=== PATIENT | female | born 1990 | race Caucasian/White ===

== ENCOUNTER 2023-11-04 13:13 | Emergency (ER) | payer OTHER ==
[~2023-11-04] VITALS: Ht 152.4 cm; Wt 80.1 kg
[~2023-11-04 13:13] MED LIST: BENTYL 20MG20 MG/TAB PO; CARAFATE 1GM1 G PO; ZOFRAN ODT4 MG PO
[2023-11-04 13:14] VITALS: TEMP 98.2
[2023-11-04 13:38] LABS: MEAN CELL VOLUME 91 fl (80.0-100.0); MEAN CORPUSCULAR HGB CONC 33 g/dl (33.0-37.0); MEAN PLATELET VOLUME 10.3 fl (7.4-10.4); PLATELET COUNT 297 K/mm3 (130-400); RED BLOOD COUNT 3.27 M/mm3 (4.10-5.30); REDCELL DISTRIBUTION WIDTH-CV 14.4 % (11.5-14.5)
[2023-11-04 13:40] LABS: HEMATOCRIT 29.8 % (37.0-47.0); HEMOGLOBIN 9.9 g/dl (12.5-16.0); MEAN CORPUSCULAR HEMOGLOBIN 30 pg (27-31)
[2023-11-04 13:59] LABS: ANISOCYTOSIS 1+; BAND 3 % (0-10); EOSINOPHIL 4 % (0-4); LYMPHOCYTE 21 % (20.0-51.0); NEUTROPHILS 64 % (42.0-75.2); POLYCHROMASIA 1+
[2023-11-04 14:00] LABS: PLATELET ESTIMATE NORMAL (NORMAL)
[2023-11-04 14:01] LABS: COLLECTION METHOD CLEAN CATCH
[2023-11-04 14:14] LABS: ALANINE AMINOTRANSFERASE 28 U/L (0-55); ALBUMIN 2.9 g/dL (3.5-5.0); ALKALINE PHOSPHATASE 142 U/L (40-150); ANION GAP 13 mmol/L (7-16); AST,SGOT 21 U/L (5-34); BILIRUBIN,TOTAL 0.2 mg/dL (0.2-1.2); BLOOD UREA NITROGEN 11 mg/dL (7-19); CALCIUM 9.5 mg/dL (8.4-10.2); CHLORIDE 105 mEq/L (98-107); CREATININE, serum 0.79 mg/dL (0.57-1.11); GLUCOSE 93 mg/dL (70-99); POTASSIUM 4.2 mEq/L (3.5-4.5); SODIUM 137 mEq/L (136-145); TOTAL PROTEIN 6.8 g/dl (6.2-8.1)
[2023-11-04 14:22] LABS: TROPONIN-I < 0.010 ng/mL (0.00-0.033)
[2023-11-04 14:38] LABS: URINE APPEARANCE CLEAR (CLEAR/HAZY); URINE BLOOD TRACE (NEGATIVE); URINE COLOR Dark Yellow (YELLOW); URINE GLUCOSE NEGATIVE (NEGATIVE); URINE KETONE TRACE (NEGATIVE); URINE NITRATE NEGATIVE (NEGATIVE); URINE PROTEIN(semi-quant) 3+ (NEGATIVE)
[2023-11-04] MEDS ORDERED: NORMODYNE100 MG PO (14:55)
[2023-11-04] MEDS ORDERED: NS 1,000 ML IV ONE (15:00)
[2023-11-04 15:06] LABS: MUCOUS PRESENT (NOT PRESENT); URINE BACTERIA MODERATE /hpf (NONE SEEN)
[2023-11-04] MEDS ORDERED: Labetalol 100 MG TAB PO ONE ×2 (15:15→18:15)
[2023-11-04] MEDS ORDERED: Ibuprofen 600 MG TAB PO ONE (17:45)
[2023-11-04] MEDS ORDERED: Acetaminophen 325 MG TAB PO ONE (17:45)
[2023-11-04 18:13] VITALS: BP 141/100; PULSE 69
== END 2023-11-04 18:13 | disposition home or self-care (01) ==
LOC: COL.ER 13:13
PROVIDERS: Emergency Medicine
DX: O16.5 Unspecified maternal hypertension, complicating the puerperium (principal)
CPT/HCPCS: J1920; J7030